=== PATIENT | male | born 1980 | race Caucasian/White ===

== ENCOUNTER 2023-11-23 16:36 | Inpatient (IN) | payer OTHER ==
[~2023-11-23] VITALS: Ht 182.9 cm; Wt 81.6 kg
[2023-11-23 16:41] VITALS: BP_SYST 118; PULSE 108; RESP 18; TEMP 98.3; O2SAT 97
[2023-11-23] MEDS: DIPHTH,PERTUSS(ACELL),TET VAC 0.5 ML VIAL (Tdap) I.M. ONE (17:23)
[2023-11-23] MEDS: LIDOCAINE 1% 10 MG/ML, 20 ML MDV INJ ONE (17:25)
[2023-11-23] MEDS: BACITRACIN 1 GM OINT TP ONE (17:25)
[2023-11-23 17:27] LABS: BASOPHILS % (AUTO) 0.2 % (0.0-2.0); EOSINOPHILS % (AUTO) 0.1 % (0.0-4.0); HEMATOCRIT 38.9 % (36-54); HEMOGLOBIN 13.4 g/dL (14.0-18.0); LYMPHOCYTES # (AUTO) 1.1 K/uL (1.0-5.5); MEAN CORPUSCULAR HEMOGLOBIN 29 pg (27-31); MEAN CORPUSCULAR HGB CONC 34 % (32-36); MEAN CORPUSCULAR VOLUME 85 fL (79.0-98.0); MONOCYTES # (AUTO) 1.1 K/uL (0.0-1.0); MONOCYTES % (AUTO) 7.5 % (1.7-9.3); NEUTROPHILS % (AUTO) 85.2 % (40.0-70.0); PLATELET COUNT (AUTO) 225 K/uL (130-430); RED BLOOD CELL COUNT(AUTO) 4.59 MIL/uL (4.2-6.2); RED CELL DISTRIBUTION WIDTH 13.4 % (9.0-15.0); WHITE BLOOD COUNT (AUTO) 15.3 K/uL (4.8-10.8)
[2023-11-23] MEDS: CLINDAMYCIN 600 mg/50mL D5W 50 ML IV ONE (18:00)
[2023-11-23 18:15] LABS: CALCIUM 8.9 mg/dL (8.4-11.0); CREATININE 0.92 mg/dL (0.55-1.30); POTASSIUM 3.7 mmol/L (3.5-5.1)
[2023-11-23 18:42] LABS: CKMB RELATIVE INDEX 0.6 (0.0-2.9); CREATINE KINASE MB 3.6 ng/mL (0-3.6)
[2023-11-23] MEDS ORDERED: METF-381 PO (19:22)
[2023-11-23] MEDS ORDERED: GLIP10TA11 PO (19:22)
[2023-11-23 19:50] LABS: BARBITURATE, URINE NEGATIVE (NEG <=200); BENZODIAZEPINE, URINE NEGATIVE (NEG <=150); CANNABINOID, URINE NEGATIVE (NEG <=50); COCAINE, URINE NEGATIVE (NEG <=150); METHAMPHETAMINES SCREEN,URINE POSITIVE (NEG <=500); OPIATE, URINE NEGATIVE (NEG <=100); PHENCYCLIDINE SCREEN,URINE NEGATIVE (NEG <=25); UR TRICYCLIC ANTIDEPRESSANTS NEGATIVE (NEG <=300); URINE AMPHETAMINE POSITIVE (NEG <=500); URINE METHADONE NEGATIVE (NEG <=200); URINE OXYCODONE SCREEN NEGATIVE (NEG <=100)
[2023-11-23] MEDS ORDERED: DEXTROSE 50% JECT 50 ML DISP.SYRIN IVP PRN (20:15)
[2023-11-23] MEDS ORDERED: NALOXONE HCL 0.4 MG/ML AMP (NARCAN) IVP PRN ×2 (20:30)
[2023-11-23] MEDS ORDERED: HYDROcodone/ACETAMIN 10-325 MG TAB PO PRN (20:30)
[2023-11-23] MEDS ORDERED: ONDANSETRON HCL 4 MG/2 ML VIAL IVP PRN (20:30)
[2023-11-23] MEDS ORDERED: HYDROcodone/ACETAMIN 5-325 MG TAB (NORCO/ VICODIN) PO PRN (20:30)
[2023-11-23] MEDS: SILVER SULFADIAZINE 1%, 25 GM TOPICAL CREAM (SSD) TP SCH (21:00)
[2023-11-23] MEDS: NACL 0.9% 1,000 ML IV SCH (22:24)
[2023-11-23] MEDS: LR 500 ML IV ONE (22:24)
[2023-11-23 22:30] VITALS: BP_SYST 119; PULSE 89; RESP 18; TEMP 98; O2SAT 100
[2023-11-24] MEDS: AMPICILLIN SODIUM/SULBACTAM NA 3 GM in NS 100 ML IV SCH (00:49)
[2023-11-24 04:00] VITALS: BP_SYST 122; PULSE 79; RESP 18; TEMP 97.8; O2SAT 99
[2023-11-24 04:48] LABS: BASOPHILS % (AUTO) 0.3 % (0.0-2.0); EOSINOPHILS # (AUTO) 0.1 K/uL (0.0-0.4); EOSINOPHILS % (AUTO) 0.7 % (0.0-4.0); HEMATOCRIT 39.2 % (36-54); HEMOGLOBIN 13.4 g/dL (14.0-18.0); LYMPHOCYTES # (AUTO) 1.4 K/uL (1.0-5.5); LYMPHOCYTES % (AUTO) 13.9 % (20.5-51.5); MEAN CORPUSCULAR HEMOGLOBIN 29 pg (27-31); MEAN CORPUSCULAR HGB CONC 34 % (32-36); MEAN CORPUSCULAR VOLUME 86 fL (79.0-98.0); MONOCYTES # (AUTO) 0.7 K/uL (0.0-1.0); NEUTROPHILS # (AUTO) 7.6 K/uL (1.8-7.7); NEUTROPHILS % (AUTO) 78.1 % (40.0-70.0); PLATELET COUNT (AUTO) 207 K/uL (130-430); RED BLOOD CELL COUNT(AUTO) 4.59 MIL/uL (4.2-6.2); RED CELL DISTRIBUTION WIDTH 13.1 % (9.0-15.0); WHITE BLOOD COUNT (AUTO) 9.8 K/uL (4.8-10.8)
[2023-11-24 05:10] LABS: ALBUMIN 2.7 g/dL (3.4-4.8); CALCIUM 8.5 mg/dL (8.4-11.0); CREATININE 0.85 mg/dL (0.55-1.30); POTASSIUM 3.4 mmol/L (3.5-5.1); TOTAL BILIRUBIN 0.6 mg/dL (0.0-1.0); TOTAL PROTEIN, SERUM 6.3 g/dL (6.4-8.3)
[2023-11-24] MEDS: INSULIN REGULAR, HUMAN 100 UNITS/ML, 3 ML VIAL (humuLIN R) SUBCUT PRN (06:02)
[2023-11-24 08:00] VITALS: BP_SYST 104; PULSE 79; RESP 18; TEMP 97.8; O2SAT 99
[2023-11-24] MEDS: metFORMIN HCL 500 MG TABLET PO SCH (08:59)
[2023-11-24 13:00] VITALS: BP_SYST 127; PULSE 74; RESP 17; TEMP 98.3; O2SAT 99
[2023-11-24 16:57] VITALS: BP_SYST 116; PULSE 78; RESP 16; TEMP 97.9; O2SAT 100
[2023-11-24 20:30] VITALS: BP_SYST 132; PULSE 77; RESP 20; TEMP 98.6; O2SAT 97
[2023-11-24 21:00] VITALS: O2SAT 97
[2023-11-25 08:00] VITALS: BP_SYST 106; PULSE 97; RESP 16; TEMP 98.8; O2SAT 98; O2SAT 99
[2023-11-25 12:00] VITALS: BP_SYST 106; PULSE 81; RESP 16; TEMP 98.1; O2SAT 98
[2023-11-25 20:30] VITALS: BP_SYST 116; PULSE 77; RESP 18; TEMP 98.3; O2SAT 99
[2023-11-26] VITALS (7 sets, daily range): BP systolic 101–130; PULSE 63–68; RESP 16–18; TEMP 97–98.1; O2SAT 97–100
[2023-11-26] MEDS: ASPIRIN 81 MG TABLET(ECOTRIN) PO ONE (11:51)
[2023-11-27] VITALS: BP_SYST 102; PULSE 66; RESP 16; TEMP 98.2; O2SAT 99
[2023-11-27 08:00] VITALS: BP_SYST 104; PULSE 77; RESP 24; TEMP 97.4; O2SAT 94
[2023-11-27] MEDS: ASPIRIN 81 MG TABLET(ECOTRIN) PO SCH (10:04)
[2023-11-27 11:04] VITALS: BP_SYST 110; PULSE 69; RESP 16; TEMP 97.5; O2SAT 99
[2023-11-27 16:28] VITALS: BP_SYST 116; PULSE 70; RESP 18; TEMP 97.9; O2SAT 98
[2023-11-27 20:10] VITALS: BP_SYST 128; PULSE 72; RESP 16; TEMP 97.4; O2SAT 100
[2023-11-27 21:50] VITALS: O2SAT 99
[2023-11-28 00:20] VITALS: BP_SYST 106; PULSE 70; RESP 16; TEMP 97.6; O2SAT 96
[2023-11-28 04:42] LABS: ERYTHROCYTE SEDIMENTATION RATE 12 MM/HR (0-15)
[2023-11-28 04:56] LABS: BASOPHILS % (AUTO) 0.5 % (0.0-2.0); EOSINOPHILS # (AUTO) 0.4 K/uL (0.0-0.4); EOSINOPHILS % (AUTO) 4.9 % (0.0-4.0); HEMATOCRIT 40.4 % (36-54); HEMOGLOBIN 13.7 g/dL (14.0-18.0); LYMPHOCYTES # (AUTO) 2.8 K/uL (1.0-5.5); LYMPHOCYTES % (AUTO) 37.4 % (20.5-51.5); MEAN CORPUSCULAR HEMOGLOBIN 29 pg (27-31); MEAN CORPUSCULAR HGB CONC 34 % (32-36); MEAN CORPUSCULAR VOLUME 86 fL (79.0-98.0); MONOCYTES # (AUTO) 0.4 K/uL (0.0-1.0); MONOCYTES % (AUTO) 5.7 % (1.7-9.3); NEUTROPHILS # (AUTO) 3.9 K/uL (1.8-7.7); NEUTROPHILS % (AUTO) 51.5 % (40.0-70.0); PLATELET COUNT (AUTO) 282 K/uL (130-430); RED BLOOD CELL COUNT(AUTO) 4.71 MIL/uL (4.2-6.2); RED CELL DISTRIBUTION WIDTH 13.4 % (9.0-15.0); WHITE BLOOD COUNT (AUTO) 7.6 K/uL (4.8-10.8)
[2023-11-28 05:11] LABS: ALBUMIN 2.4 g/dL (3.4-4.8); CALCIUM 8.8 mg/dL (8.4-11.0); CREATININE 0.91 mg/dL (0.55-1.30); POTASSIUM 3.8 mmol/L (3.5-5.1); TOTAL BILIRUBIN 0.2 mg/dL (0.0-1.0); TOTAL PROTEIN, SERUM 6.2 g/dL (6.4-8.3)
[2023-11-28 08:00] VITALS: BP_SYST 108; PULSE 78; RESP 18; TEMP 97.7; O2SAT 100
[2023-11-28 11:15] VITALS: BP_SYST 110; PULSE 74; RESP 17; TEMP 98.9; O2SAT 97
[2023-11-28 16:16] VITALS: BP_SYST 114; PULSE 79; RESP 16; TEMP 98.4; O2SAT 96
[2023-11-28] MEDS ORDERED: DOXY100C PO (16:51)
[2023-11-28 17:54] VITALS: BP_SYST 114; PULSE 79; RESP 18; TEMP 98.4; O2SAT 96
== END 2023-11-28 18:34 | disposition home health service (06) | DRG 720 ==
LOC: SED 16:36 → SMU 20:11
PROVIDERS: ADMIT Internal Medicine; ATTEND Internal Medicine
PROC: 0Y9N0ZZ Drainage of Left Foot, Open Approach (ICD-10-PCS; principal; 2023-11-23)
DX: A41.9 Sepsis, unspecified organism (principal); E44.0 Moderate protein-calorie malnutrition; E11.621 Type 2 diabetes mellitus with foot ulcer; E11.51 Type 2 diabetes mellitus with diabetic peripheral angiopathy without gangrene; L03.116 Cellulitis of left lower limb; L97.529 Non-pressure chronic ulcer of other part of left foot with unspecified severity; F15.10 Other stimulant abuse, uncomplicated; Z79.899 Other long term (current) drug therapy; Z79.84 Long term (current) use of oral hypoglycemic drugs; Z68.24 Body mass index [BMI] 24.0-24.9, adult
CPT/HCPCS: 36415; 73720; 80048; 80053; 80307; 82550; 82553; 82948; 83037; 83605; 85025; 85651; 87040; 90715; 93923; 96365; 99285; J0295; J1815; J2001; J3490